=== PATIENT | female | born 2005 | race Hispanic/Latino ===

== ENCOUNTER 2023-07-07 17:51 | Emergency (ER) | payer OTHER ==
[2023-07-07] MEDS ORDERED: Morphine 4 MG/ML VIAL ONE (19:51)
[2023-07-07] MEDS ORDERED: Ondansetron PF 4 MG/2 ML Vial ONE (19:51)
[2023-07-07 20:02] LABS: #Monocytes 1.2 thou/uL (0.11-0.59); #Neutrophils 13.1 thou/uL (1.40-6.50); %Basophils 0.3 % (0.0-1.0); %Lymphocytes 5.5 % (28.0-48.0); %Monocytes 7.6 % (0.0-4.0); %Neutrophils 86.3 % (31.0-61.0); Hematocrit 40.8 % (36.0-47.0); Mean Corpuscular HGB CONC 34.3 g/dL (32.0-36.0); Mean Corpuscular Hemoglobin 28.7 pg (25.0-35.0); Mean Corpuscular Volume 83.6 fl (78.0-98.0); Mean Platelet Volume 10.4 fL (7.4-10.4); Platelet Count 164 10x3/uL (130-400); Red Blood Cell (RBC) Count 4.88 mill/uL (4.00-5.20); White Blood Cell (WBC) Count 15.2 10x3/uL (4.8-10.8)
[2023-07-07 20:12] LABS: BHCG - Serum Negative (NEGATIVE); Pregs Control Background? CLEAR/WHITE (CLR/WHITE); Pregs Control Bar Appear? YES (CONTROL BAR)
[2023-07-07 20:27] LABS: ALT (SGPT) 15 U/L (8-55); AST (SGOT) 18 U/L (5-30); Albumin 4.7 g/dL (3.5-5.0); Alkaline Phosphatase 64 U/L (40-100); Anion Gap 13 mmol/L (10-20); BUN (Urea Nitrogen) 9 mg/dL (8.4-21.0); Bilirubin, Total 0.5 mg/dL (0.2-1.2); Calc. Creatinine Clearance 0 mL/min (70-130); Calcium 9.8 mg/dL (7.8-10.44); Carbon Dioxide 23 mmol/L (22-29); Chloride 101 mmol/L (98-107); Estimated GFR 112; Glucose 117 mg/dL (70-105); Potassium 3.7 mmol/L (3.5-5.1); Protein, Total 7.7 g/dL (6.0-8.3); Sodium 133 mmol/L (136-145)
[2023-07-07] MEDS ORDERED: Lidocaine 1% PF 5 ML VIAL ONE (20:39)
[2023-07-07] MEDS ORDERED: fentaNYL 50 mcg/mL 1 mL Vial ONE ×2 (21:06→21:14)
[2023-07-07] MEDS ORDERED: Ketorolac Tromethamine 30 MG/ML VIAL ONE (21:33)
[2023-07-08 13:00] LABS: Chlam.trachomatis by PCR,Urine Not Detected (NotDetected); GC N.gonorrhoeae PCR,UrineVOID Not Detected (NotDetected)
== END 2023-07-07 22:43 | disposition home or self-care (01) ==
LOC: ERS 17:51
DX: N75.1 Abscess of Bartholin's gland (principal)
CPT/HCPCS: 56420; 80053; 84703; 85025; 87070; 87205; 87491; 87591; 96374; 96375; J1885; J2270; J2405; J3010

== ENCOUNTER 2023-12-07 17:30 | Emergency (ER) | payer SELFPAY | END 2023-12-07 19:18 | disposition home or self-care (01) | LOC: ERS 17:30 | DX: N75.1 Abscess of Bartholin's gland (principal); Z55.6 Problems related to health literacy | CPT/HCPCS: 56420 ==